=== PATIENT | male | born 1970 | race Caucasian/White ===

== ENCOUNTER 2019-04-15 22:37 | Emergency (ER) | payer SELFPAY ==
[~2019-04-15] VITALS: Ht 167.6 cm; Wt 87.7 kg
[2019-04-15] MEDS ORDERED: KETOROLAC 60MG/2ML VIAL IM ONE (23:45)
[2019-04-16 01:16] VITALS: BP 135/89
== END 2019-04-16 01:17 | disposition home or self-care (01) ==
LOC: ER 22:37
DX: R07.89 Other chest pain (principal); R07.81 Pleurodynia; V49.88XA Car occupant (driver) (passenger) injured in other specified transport accidents, initial encounter; Y93.89 Activity, other specified; Y92.89 Other specified places as the place of occurrence of the external cause; Y99.8 Other external cause status
CPT/HCPCS: 71045; 96372; 99283; J1885